=== PATIENT | female | born 1935 | race African-American/Black ===

== ENCOUNTER → 2017-03-23 | Outpatient (CLI) | payer MEDICARE, MEDICAID ==
[2017-03-23 14:06] LABS: ABSOLUTE MONOCYTES (AUTO) 0.4 10^3/uL (0.1-1.4); ABSOLUTE NEUT (AUTO) 4.3 10^3/uL (1.7-8.2); BASOPHILS % (AUTO) 0.2 % (0-2); EOSINOPHILS % (AUTO) 0.6 % (0-6); HEMOGLOBIN 10.3 g/dL (12.0-15.5); LYMPHOCYTES % (AUTO) 17.2 % (13-45); MEAN CORPUSCULAR HEMOGLOBIN 28.2 pg (27.0-33.4); MEAN CORPUSCULAR HGB CONC 33.2 g/dL (32.0-36.0); MEAN CORPUSCULAR VOLUME 85 fl (80-97); PLATELET COUNT 231 10^3/uL (150-450); RED BLOOD COUNT 3.66 10^6/uL (3.72-5.28); RED CELL DISTRIBUTION WIDTH 14.5 % (11.5-14.0); TOTAL CELLS COUNTED % (AUTO) 100 %; WHITE BLOOD COUNT 5.8 10^3/uL (4.0-10.5)
[2017-03-23 14:25] LABS: ALANINE AMINOTRANSFERASE 20 U/L (9-52); ALBUMIN 4.1 g/dL (3.5-5.0); ALKALINE PHOSPHATASE 76 U/L (38-126); ANION GAP 13 (5-19); ASPARTATE AMINO TRANSFERASE 13 U/L (14-36); BILIRUBIN,DIRECT 0.2 mg/dL (0.0-0.4); BILIRUBIN,TOTAL 0.5 mg/dL (0.2-1.3); BLOOD UREA NITROGEN 16 mg/dL (7-20); CALCIUM 10.4 mg/dL (8.4-10.2); CARBON DIOXIDE 30 mmol/L (22-30); CHLORIDE 99 mmol/L (98-107); GLUCOSE 86 mg/dL (75-110); POTASSIUM 3.8 mmol/L (3.6-5.0); SODIUM 141.8 mmol/L (137-145); TOTAL PROTEIN 8.1 g/dL (6.3-8.2)
--- NOTE | 2017-03-24 10:29 | EKG REPORT ---
SEVERITY:- ABNORMAL ECG - SINUS RHYTHM CONSIDER LEFT VENTRICULAR HYPERTROPHY : Confirmed by: Harpreet Wilkins 24-Mar-2017 10:28:59
== END ==
LOC: OD 12:48
PROVIDERS: ATTEND Orthopaedic Surgery Sports Medicine
DX: I10 Essential (primary) hypertension (principal); Z11.0 Encounter for screening for intestinal infectious diseases
CPT/HCPCS: 36415; 80053; 85025; 87070; 93005; 93010

== ENCOUNTER 2018-03-18 19:37 | Emergency (ER) | payer MEDICARE, MEDICAID ==
[2018-03-18 20:19] VITALS: BP 168/87
--- NOTE | 2018-03-18 22:23 | ER Document Report ---
ED General - General Chief Complaint: Cough Stated Complaint: COUGH Time Seen by Provider: 03/18/18 22:03 Notes: Patient is an 82-year-old female that comes to the emergency department for chief complaint of a cough for over a week, almost 2 weeks, she states she has had congestion, sneezing, and she is getting increased sinus pressure and discomfort. She denies shortness of breath, chest pain, headache, abdominal pain, back pain, fever. She states she wanted to be seen because she has not gotten better. She states she is to have asthma, never requires an inhaler, denies wheezing. Never smoker. Only reported medical history is hypertension. Lives with her family. TRAVEL OUTSIDE OF THE [place] IN LAST 30 DAYS: No - Related Data Allergies/Adverse Reactions: aspirin Allergy (Verified 03/18/18 19:56) Penicillins Allergy (Verified 03/18/18 19:56) Past Medical History - General Information source: Patient - Social History Smoking Status: Never Smoker Frequency of alcohol use: None Drug Abuse: None Lives with: Family Family History: Reviewed & Not Pertinent - Past Medical History Cardiac Medical History: Reports: Hx Hypertension - Immunizations Immunizations up to date: Yes Hx Diphtheria, Pertussis, Tetanus Vaccination: Yes Review of Systems - Review of Systems Constitutional: See HPI EENT: See HPI Cardiovascular: No symptoms reported Respiratory: See HPI Gastrointestinal: No symptoms reported Genitourinary: No symptoms reported Female Genitourinary: No symptoms reported Musculoskeletal: No symptoms reported Skin: No symptoms reported Hematologic/Lymphatic: No symptoms reported Neurological/Psychological: No symptoms reported Physical Exam - Vital signs Vitals: Temp Pulse Resp BP Pulse Ox 97.5 F 90 18 120/58 L 98 03/18/18 20:14 03/18/18 20:14 03/18/18 20:14 03/18/18 20:14 03/18/18 20:14 - Notes Notes: GENERAL: Alert, interacts well. No acute distress. HEAD: Normocephalic, atraumatic. EYES: Pupils equal, round, and reactive to light. Extraocular movements intact. ENT: Oral mucosa moist, tongue midline. Oropharynx unremarkable. Airway patent. Sinus congestion and irritated turbinates, minimal discomfort with palpation over the sinuses especially the maxillary sinuses. TM's intact. NECK: Full range of motion. Supple. Trachea midline. LUNGS: Clear to auscultation bilaterally, no wheezes, rales, or rhonchi. No respiratory distress. Occasional mild congested cough. HEART: Regular rate and rhythm. No murmur ABDOMEN: Soft, non-tender. Non-distended. Bowel sounds present in all 4 quadrants. GENITOURINARY: Deferred EXTREMITIES: Moves all 4 extremities spontaneously. No edema, normal radial and dorsalis pedis pulses bilaterally. No cyanosis. BACK: no cervical, thoracic, lumbar midline tenderness. No saddle anesthesia, normal distal neurovascular exam. NEUROLOGICAL: Alert and oriented x3. Normal speech. [cranial nerves II through XII grossly intact]. PSYCH: Normal affect, normal mood. SKIN: Warm, dry, normal turgor. No rashes or lesions noted. Course - Re-evaluation Re-evalutation: This is a very well-appearing 82-year-old female with upper respiratory symptoms of congestion, sneezing, cough with developing sinus tenderness over the past week or so. Her chest x-ray is unremarkable with no acute findings. She has no tachypnea, hypoxia, fever, or signs of distress. She is denying any chest pain. Patient is already asking to leave on reevaluation. I discussed with patient and family members in detail. Patient appears to have a viral upper respiratory infection, probably bronchitis, no underlying pneumonia noted. They are requesting treatment for her sinuses/possible pneumonia. Patient was started on azithromycin here and will be completing a dose at home for treatment of her sinusitis and pneumonia prevention. Discussed [id number] medications, Claritin use, close follow-up, and return precautions in detail. Patient and family state satisfaction and agreement. - Vital Signs Vital signs: Temp Pulse Resp BP Pulse Ox 98.2 F 80 16 168/87 H 97 03/18/18 20:19 03/18/18 20:19 03/18/18 20:19 03/18/18 20:19 03/18/18 20:19 Discharge - Discharge Clinical Impression: Cough, Upper respiratory disease Sinusitis Qualifiers: Sinusitis location: unspecified location Chronicity: unspecified Qualified Code(s): J32.9 - Chronic sinusitis, unspecified Condition: Stable Disposition: HOME, SELF-CARE Additional Instructions: Your chest x-ray does not show any concerning abnormality. Your evaluation is reassuring. Your symptoms are consistent with an upper respiratory infection and developing sinus infection. We have placed on azithromycin for this. You can also take the Claritin to help with congestion. Symptoms should start gradually resolving. Follow-up with your primary care provider. Return if you worsen including fever, difficulty breathing, severe headache, or any other concerning or worsening symptoms. Prescriptions: Azithromycin [Zithromax 250 mg Tablet] 250 mg PO ASDIR PRN #4 tablet PRN Reason: Loratadine [Claritin 10 mg Tablet] 10 mg PO DAILY #30 tablet Referrals: NAM ALVARES MD [Primary Care Provider] - Follow up in 3-5 days
--- NOTE | 2018-03-18 22:44 | RADIOLOGY REPORT (SQ) ---
EXAM DESCRIPTION: XR CHEST 2 VIEWS COMPLETED DATE/TME: 03/18/2018 22:09 CLINICAL HISTORY: 82 years, Female, cough x 2 weeks COMPARISON: None. NUMBER OF VIEWS: 2 TECHNIQUE: Frontal and lateral views of the chest LIMITATIONS: None. FINDINGS: Heart size is normal. Atheromatous change thoracic aorta. Osteopenia. Lungs are hyperinflated but clear. No pneumothorax. Post surgical change right shoulder IMPRESSION: Underlying hyperinflation/COPD. No acute cardiopulmonary process copyright 2010 [employer]- All Rights Reserved
[2018-03-18] MEDS ORDERED: AZITHROMYCIN 250 MG TABLET PO ONE (23:13)
== END 2018-03-18 23:55 | disposition home or self-care (01) ==
LOC: ER 19:37
DX: J06.9 Acute upper respiratory infection, unspecified (principal); J32.9 Chronic sinusitis, unspecified; R05 Cough; I10 Essential (primary) hypertension; Z88.6 Allergy status to analgesic agent; Z88.0 Allergy status to penicillin
CPT/HCPCS: 99283; 71046; A9270